=== PATIENT | female | born 1955 | race Caucasian/White ===

== ENCOUNTER → 2024-12-30 08:14 | Outpatient (REF) | payer MEDICARE, BC, SELFPAY | LOC: HWRAD 08:14 | PROVIDERS: ATTENDING PHYSICIAN Internal Medicine Critical Care Medicine; FAMILY PHYSICIAN Family Medicine | DX: D86.0 Sarcoidosis of lung (principal); R91.8 Other nonspecific abnormal finding of lung field | CPT/HCPCS: 71250 ==